=== PATIENT | female | born 1990 | race Asian ===

== ENCOUNTER 2023-05-15 08:06 | Emergency (ER) | payer OTHER ==
[~2023-05-15] VITALS: Ht 165.1 cm; Wt 60.9 kg
[2023-05-15] MEDS ORDERED: IRON65TA2 PO (08:30)
[2023-05-15 09:00] LABS: URINE PREG TEST NEGATIVE (NEGATIVE)
[2023-05-15 10:19] VITALS: BP 113/57; TEMP 96.8; O2SAT 96
[2023-05-15 11:10] LABS: CHLAMYDIA DNA AMPLIFICATION NEGATIVE (NEGATIVE); GC DNA AMPLIFICATION NEGATIVE (NEGATIVE)
== END 2023-05-15 10:20 | disposition home or self-care (01) ==
LOC: M ED 08:06
DX: N90.7 Vulvar cyst (principal); F10.10 Alcohol abuse, uncomplicated; Z91.040 Latex allergy status; Z79.899 Other long term (current) drug therapy

== ENCOUNTER → 2023-09-24 | Outpatient (CLI) | payer OTHER ==
[~2023-09-24] MED LIST: IRON65TA2 PO
== END ==
LOC: M RADPRO 11:09
PROVIDERS: ATTEND Obstetrics & Gynecology
DX: N97.1 Female infertility of tubal origin (principal)

== ENCOUNTER 2024-02-20 12:00 | Day surgery (SDC) | payer OTHER ==
[~2024-02-20] VITALS: Ht 165.1 cm; Wt 56.8 kg
[~2024-02-20 12:00] MED LIST changes: +VENTAER INH
[2024-02-20] MEDS ORDERED: ALBUTEROL SULFATE 2.5MG/0.5ML INH NEB SOLN INH PRN (12:05)
[2024-02-20 12:40] LABS: HEMATOCRIT 37.6 % (36.0-47.0); MEAN CORPUSCULAR HEMOGLOBIN 31.1 pg (27.0-33.0); MEAN CORPUSCULAR HGB CONC 34.6 g/dl (32.0-36.5); PLATELET COUNT, AUTOMATED 292 10^3/uL (150-450); RED BLOOD COUNT 4.18 10^6/uL (4.00-5.40); WHITE BLOOD COUNT 4.4 10^3/uL (4.0-10.0)
[2024-02-20] MEDS ORDERED: fentaNYL 100 MCG/2 ML INJECTION As Ordered ONE (15:24)
[2024-02-20] MEDS ORDERED: MIDAZOLAM INJ 2MG/2ML VIAL As Ordered ONE (15:24)
[2024-02-20] MEDS ORDERED: propofoL 200 MG/20 ML VIAL As Ordered ONE (15:25)
[2024-02-20] MEDS ORDERED: ROCURONIUM BROMIDE 50MG/5ML VIAL As Ordered ONE (15:25)
[2024-02-20] MEDS ORDERED: LIDOCAINE 2% 100MG/5ML SDV (FOR ANES.) As Ordered ONE (15:33)
[2024-02-20] MEDS ORDERED: ONDANSETRON 4MG 2ML VIAL As Ordered ONE (15:52)
[2024-02-20] MEDS ORDERED: ACETAMINOPHEN 1000MG 100ML IV BAG As Ordered ONE (16:07)
[2024-02-20] MEDS ORDERED: KETOROLAC 60MG 2ML VIAL As Ordered ONE (16:08)
[2024-02-20] MEDS ORDERED: METOCLOPRAMIDE INJ 10MG/2ML VIAL As Ordered ONE (16:08)
[2024-02-20] MEDS: METHYLENE BLUE 0.5% (5MG/ML) 10 ML AMP (PROVAYBLUE) As Ordered ONE (16:44)
[2024-02-20] MEDS ORDERED: SUGAMMADEX SODIUM 500 MG/5 ML VIAL (BRIDION) As Ordered ONE (16:57)
[2024-02-20] MEDS ORDERED: METOCLOPRAMIDE INJ 10MG/2ML VIAL IV PRN (17:05)
[2024-02-20] MEDS ORDERED: diphenhydrAMINE 50MG/ML VIAL IV PRN (17:05)
[2024-02-20] MEDS ORDERED: ONDANSETRON 4MG 2ML VIAL IV PRN (17:05)
[2024-02-20] MEDS ORDERED: MEPERIDINE 25 MG/ML 1ML VIAL IV PRN (17:05)
[2024-02-20] MEDS ORDERED: fentaNYL 100 MCG/2 ML INJECTION IV PRN (17:05)
[2024-02-20] MEDS ORDERED: HYDROMORPHONE HCL 0.5 MG/ 0.5 ML SYRINGE IV PRN (17:05)
[2024-02-20] MEDS: ceFAZolin SOD 2 GM in IV 1 EA IV ONE (17:50)
[2024-02-20 18:25] VITALS: BP 108/60; TEMP 98; O2SAT 100
== END 2024-02-20 18:36 | disposition home or self-care (01) ==
LOC: M SDC 12:00
PROVIDERS: ATTEND Obstetrics & Gynecology
DX: N80.3C9 Endometriosis of the uterosacral ligament(s), unspecified side, unspecified depth (principal); N80.329 Endometriosis of the posterior cul-de-sac, unspecified depth; N73.6 Female pelvic peritoneal adhesions (postinfective); N94.89 Other specified conditions associated with female genital organs and menstrual cycle; Z98.891 History of uterine scar from previous surgery; Z88.5 Allergy status to narcotic agent; Z91.040 Latex allergy status; Z72.0 Tobacco use
CPT/HCPCS: 36415; 49320; 58350; 81025; 85027; 86850; 86900; 86901; J0131; J0665; J0690; J1100; J1885; J2250; J2405; J2765; J3010; Q9968

== ENCOUNTER → 2024-11-08 | Outpatient (CLI) | payer OTHER | LOC: M WHC 08:42 | PROVIDERS: ATTEND Obstetrics & Gynecology | DX: N92.1 Excessive and frequent menstruation with irregular cycle (principal); R93.89 Abnormal findings on diagnostic imaging of other specified body structures ==

== ENCOUNTER → 2024-11-29 | Outpatient (CLI) | payer OTHER | LOC: M PLALAB 12:25 | PROVIDERS: ATTEND Obstetrics & Gynecology | DX: O23.599 Infection of other part of genital tract in pregnancy, unspecified trimester (principal); Z3A.00 Weeks of gestation of pregnancy not specified ==

== ENCOUNTER → 2024-12-01 | Outpatient (CLI) | payer OTHER | LOC: M PLALAB 09:47 | PROVIDERS: ATTEND Obstetrics & Gynecology | DX: O23.599 Infection of other part of genital tract in pregnancy, unspecified trimester (principal); Z3A.00 Weeks of gestation of pregnancy not specified ==

== ENCOUNTER 2024-12-03 12:37 | Emergency (ER) | payer OTHER ==
[~2024-12-03] VITALS: Ht 165.1 cm; Wt 55.8 kg
[2024-12-03 14:23] LABS: BASO # 0.0 10^3/uL (0.0-0.2); BASO % 0.5 % (0.0-1.0); EOS # 0.1 10^3/uL (0.0-0.5); EOS % 2.2 % (0.0-3.0); LYMPH # 1.4 10^3/uL (1.5-5.0); LYMPH % 23.5 % (24.0-44.0); MONO # 0.4 10^3/uL (0.0-0.8); MONO % 7.5 % (2.0-8.0); NEUTROPHILS # 3.8 10^3/uL (1.5-8.5); NEUTROPHILS % 66.0 % (36.0-66.0); PLATELET COUNT, AUTOMATED 297 10^3/uL (150-450)
[2024-12-03 14:53] LABS: CALCIUM LEVEL 8.9 MG/DL (8.5-10.1); CARBON DIOXIDE LEVEL 27 MMOL/L (20-31); CHLORIDE LEVEL 105 MMOL/L (98-107); CREATININE FOR GFR 0.64 MG/DL (0.55-1.30); GLOMERULAR FILTRATION RATE > 90.0 (>60); POTASSIUM SERUM 3.7 MMOL/L (3.5-5.1); SODIUM LEVEL 141 MMOL/L (136-145)
[2024-12-03 15:12] LABS: HCG, SERUM QUANTITATIVE 1178.9 MIU/ML (<4.2)
[2024-12-03 17:57] LABS: Trichomonas vaginalis (AMP) NOT DETECTED (NEGATIVE)
[2024-12-03 18:20] LABS: GC DNA AMPLIFICATION NEGATIVE (NEGATIVE)
[2024-12-03 18:42] VITALS: BP 98/50; TEMP 98.4; O2SAT 100
== END 2024-12-03 18:49 | disposition home or self-care (01) ==
LOC: M ED 12:37
DX: O20.0 Threatened abortion (principal); O26.891 Other specified pregnancy related conditions, first trimester; Z3A.00 Weeks of gestation of pregnancy not specified; Z88.5 Allergy status to narcotic agent; Z91.040 Latex allergy status

== ENCOUNTER → 2024-12-09 | Outpatient (CLI) | payer OTHER | LOC: M PLALAB 11:53 | PROVIDERS: ATTEND Obstetrics & Gynecology | DX: N96 Recurrent pregnancy loss (principal) ==

== ENCOUNTER 2025-01-08 14:01 | Emergency (ER) | payer OTHER ==
[~2025-01-08] VITALS: Ht 165.1 cm; Wt 54.7 kg
[2025-01-08 15:35] LABS: BASO # 0.0 10^3/uL (0.0-0.2); BASO % 0.4 % (0.0-1.0); EOS # 0.1 10^3/uL (0.0-0.5); EOS % 1.6 % (0.0-3.0); LYMPH # 1.3 10^3/uL (1.5-5.0); LYMPH % 17.1 % (24.0-44.0); MONO # 0.4 10^3/uL (0.0-0.8); MONO % 5.4 % (2.0-8.0); NEUTROPHILS # 5.7 10^3/uL (1.5-8.5); NEUTROPHILS % 75.1 % (36.0-66.0); PLATELET COUNT, AUTOMATED 278 10^3/uL (150-450)
[2025-01-08] MEDS: NS (Normal Saline) 0.9% 1,000 ML IV ONE (15:53)
[2025-01-08 15:58] LABS: CALCIUM LEVEL 8.9 MG/DL (8.5-10.1); CARBON DIOXIDE LEVEL 26 MMOL/L (20-31); CHLORIDE LEVEL 103 MMOL/L (98-107); CREATININE FOR GFR 0.61 MG/DL (0.55-1.30); GLOMERULAR FILTRATION RATE > 90.0 (>60); POTASSIUM SERUM 4.2 MMOL/L (3.5-5.1); SODIUM LEVEL 139 MMOL/L (136-145)
[2025-01-08 16:16] LABS: HCG, SERUM QUANTITATIVE 8947.3 MIU/ML (<4.2)
[2025-01-08 17:10] VITALS: BP 108/54; TEMP 98; O2SAT 100
== END 2025-01-08 17:12 | disposition home or self-care (01) ==
LOC: M ED 14:01
DX: O03.9 Complete or unspecified spontaneous abortion without complication (principal); Z3A.08 8 weeks gestation of pregnancy; Z88.5 Allergy status to narcotic agent; Z91.040 Latex allergy status

== ENCOUNTER 2025-01-11 17:42 | Emergency (ER) | payer OTHER ==
[~2025-01-11] VITALS: Ht 165.1 cm; Wt 54.9 kg
[2025-01-11] MEDS ORDERED: MULTTAB20 PO (17:55)
[2025-01-11 18:43] LABS: BASO # 0.0 10^3/uL (0.0-0.2); BASO % 0.6 % (0.0-1.0); EOS # 0.2 10^3/uL (0.0-0.5); EOS % 3.1 % (0.0-3.0); LYMPH # 1.6 10^3/uL (1.5-5.0); LYMPH % 33.5 % (24.0-44.0); MONO # 0.3 10^3/uL (0.0-0.8); MONO % 5.9 % (2.0-8.0); NEUTROPHILS # 2.7 10^3/uL (1.5-8.5); NEUTROPHILS % 56.5 % (36.0-66.0); PLATELET COUNT, AUTOMATED 275 10^3/uL (150-450)
[2025-01-11 19:03] LABS: CALCIUM LEVEL 8.3 MG/DL (8.5-10.1); CARBON DIOXIDE LEVEL 26 MMOL/L (20-31); CHLORIDE LEVEL 106 MMOL/L (98-107); CREATININE FOR GFR 0.79 MG/DL (0.55-1.30); GLOMERULAR FILTRATION RATE > 90.0 (>60); HCG, SERUM QUANTITATIVE 610.7 MIU/ML (<4.2); POTASSIUM SERUM 3.4 MMOL/L (3.5-5.1); SODIUM LEVEL 140 MMOL/L (136-145)
[2025-01-11] MEDS: NS (Normal Saline) 0.9% 1,000 ML IV ONE (19:10)
[2025-01-11 22:20] VITALS: BP 118/56; TEMP 98.1; O2SAT 100
== END 2025-01-11 22:32 | disposition home or self-care (01) ==
LOC: M ED 17:42
DX: N93.9 Abnormal uterine and vaginal bleeding, unspecified (principal); D64.9 Anemia, unspecified; Z88.5 Allergy status to narcotic agent; Z91.040 Latex allergy status

== ENCOUNTER → 2025-01-26 | Outpatient (CLI) | payer OTHER ==
[~2025-01-26] MED LIST changes: +MULTTAB20 PO
[2025-01-26 15:58] LABS: PLATELET COUNT, AUTOMATED 313 10^3/uL (150-450)
== END ==
LOC: M PLALAB 13:14
PROVIDERS: ATTEND Obstetrics & Gynecology
DX: O03.9 Complete or unspecified spontaneous abortion without complication (principal)

== ENCOUNTER → 2025-04-06 | Outpatient (CLI) | payer OTHER ==
[2025-04-06 10:42] LABS: PLATELET COUNT, AUTOMATED 272 10^3/uL (150-450)
[2025-04-06 10:52] LABS: ALT/SGPT 15 U/L (7.0-40); AST/SGOT 14 U/L (<34); CALCIUM LEVEL 8.7 MG/DL (8.5-10.1); CARBON DIOXIDE LEVEL 26 MMOL/L (20-31); CHLORIDE LEVEL 104 MMOL/L (98-107); CREATININE FOR GFR 0.75 MG/DL (0.55-1.30); GLOMERULAR FILTRATION RATE > 90.0 (>60); HCG, SERUM QUANTITATIVE 46.6 MIU/ML (<4.2); POTASSIUM SERUM 4.5 MMOL/L (3.5-5.1); SODIUM LEVEL 137 MMOL/L (136-145)
== END ==
LOC: M PLALAB 08:09
PROVIDERS: ATTEND Obstetrics & Gynecology
DX: O26.20 Pregnancy care for patient with recurrent pregnancy loss, unspecified trimester (principal); Z3A.00 Weeks of gestation of pregnancy not specified

== ENCOUNTER → 2025-04-08 | Outpatient (CLI) | payer OTHER | LOC: M LAB 08:21 | PROVIDERS: ATTEND Obstetrics & Gynecology | DX: O26.20 Pregnancy care for patient with recurrent pregnancy loss, unspecified trimester (principal) ==

== ENCOUNTER → 2025-04-11 | Outpatient (CLI) | payer OTHER | LOC: M PLALAB 11:27 | PROVIDERS: ATTEND Obstetrics & Gynecology | DX: Z34.91 Encounter for supervision of normal pregnancy, unspecified, first trimester (principal) ==